=== PATIENT | male | born 1970 | race Caucasian/White ===

== ENCOUNTER 2016-09-25 11:15 | Emergency (ER) | payer OTHER ==
[~2016-09-25] VITALS: Wt 105.5 kg
[2016-09-25] MEDS ORDERED: ONDANSETRON 4 MG INJ IV STA (11:45)
[2016-09-25] MEDS ORDERED: morphine 4 MG/ML VIAL IV STA (11:45)
[2016-09-25] MEDS ORDERED: SOD CHLORIDE 0.9% 1,000 ML IV STA (11:45)
--- NOTE | 2016-09-25 12:07 | ERD ---
ER Documentation Chief Complaint Date/Time DATE: 09/25/16 TIME: 12:02 Chief Complaint bilat flank pain x2days w/ dysuria HPI This is a 46-year-old male who presents to the emergency department today complaining of back pain, abdominal pain and testicular and groin pain that started yesterday. Patient states he had this approximately 3-4 months ago however it resolved and returned again yesterday. States he has had a fever yesterday. States he has pain with urination as well as blood in his urine. Denies any vomiting or diarrhea ROS All systems reviewed and are negative except as per history of present illness. Medications Home Meds Active Scripts Tamsulosin Hcl* (Flomax*) 0.4 Mg Cap.er.24h, 0.4 MG PO BID, #30 CAP Prov:SALENA BATISTA PA-C 09/25/16 Ciprofloxacin Hcl* (Ciprofloxacin Hcl*) 500 Mg Tablet, 500 MG PO BID for 14 Days , TAB Prov:SALENA BATISTA PA-C 09/25/16 Naproxen* (Naprosyn*) 500 Mg Tablet, 500 MG PO BID Y for PAIN AND/OR INFLAMMATION, #30 TAB Prov:SALENA BATISTA PA-C 09/25/16 Hydrocodone/Acetaminophen ([place] 5-325 Tablet) 1 Each Tablet, 1 TAB PO Q6H Y for PAIN, #12 TAB Prov:SALENA BATISTAC 09/25/16 Allergies Allergies: Coded Allergies: No Known Allergy (Unverified , 09/25/16) PMhx/Soc Hx Alcohol Use: No Hx Substance Use: No Hx Tobacco Use: No Physical Exam Vitals Vital Signs Date Time Temp Pulse Resp B/P Pulse Ox O2 Delivery O2 Flow Rate FiO2 09/25/16 11:21 99.2 100 22 122/69 96 Physical Exam Const: No acute distress Head: Atraumatic Eyes: Normal Conjunctiva ENT: Normal External Ears, Nose and Mouth. Neck: Full range of motion..~ No meningismus. Resp: Clear to auscultation bilaterally Cardio: Regular rate and rhythm, no murmurs Abd: Soft, right lower quadrant and left lower quadrant pain non distended. Normal bowel sounds. No specific tenderness McBurney's. No right upper quadrant tenderness uncircumcised penis with no purulent drainage. Right-sided testicular pain. No erythema or warmth. No edema. Skin: No petechiae or rashes Back: Bilateral lumbar spine paraspinal tenderness. No CVA tenderness. No midline tenderness. Pulses 2+. Distal neurovascular Ext: No cyanosis, or edema Neur: Awake and alert Psych: Normal Mood and Affect Result Diagram: 09/25/16 1220 09/25/16 1220 Results 24 hrs Laboratory Tests Test 09/25/16 12:20 09/25/16 14:15 White Blood Count 17.310^3/ul Red Blood Count 5.4310^6/ul Hemoglobin 15.0g/dl Hematocrit 44.8% Mean Corpuscular Volume 82.5fl Mean Corpuscular Hemoglobin 27.6pg Mean Corpuscular Hemoglobin Concent 33.5g/dl Red Cell Distribution Width 13.2% Platelet Count 27465^3/UL Mean Platelet Volume 10.6fl Neutrophils % 82.8% Lymphocytes % 10.5% Monocytes % 5.4% Eosinophils % 0.6% Basophils % 0.3% Nucleated Red Blood Cells % 0.0/100WBC Neutrophils # 14.310^3/ul Lymphocytes # 1.810^3/ul Monocytes # 0.910^3/ul Eosinophils # 0.110^3/ul Basophils # 0.110^3/ul Nucleated Red Blood Cells # 0.010^3/ul Sodium Level 143mmol/L Potassium Level 4.6mmol/L Chloride Level 103mmol/L Carbon Dioxide Level 24mmol/L Anion Gap 21 Blood Urea Nitrogen 16mg/dl Creatinine 0.97mg/dl Glucose Level 110mg/dl Calcium Level 9.5mg/dl Total Bilirubin 0.5mg/dl Direct Bilirubin 0.00mg/dl Indirect Bilirubin 0.5mg/dl Aspartate Amino Transf (AST/SGOT) 24IU/L Alanine Aminotransferase (ALT/SGPT) 42IU/L Alkaline Phosphatase 102IU/L Total Protein 7.8g/dl Albumin 5.1g/dl Globulin 2.70g/dl Albumin/Globulin Ratio 1.88 Lipase 85U/L Urine Color LT. YELLOW Urine Clarity CLOUDY Urine pH 7.0 Urine Specific [place] 1.020 Urine Ketones TRACE Urine Nitrite POSITIVE Urine Bilirubin NEGATIVE Urine Urobilinogen 0.2 E.U./dL Urine Leukocyte Esterase 1+ Urine Microscopic RBC 5-10/HPF Urine Microscopic WBC >50/HPF Urine Squamous Epithelial Cells OCCASIONAL/HPF Urine Bacteria MANY/HPF Urine Hemoglobin 3+ Urine Glucose NEGATIVE% Urine Total Protein 1+ Current Medications Medications (Trade) Dose Ordered Sig/Stephane Route PRN Reason Start Time Stop Time Status Last Admin Dose Admin Sodium Chloride (NS) 1,000 ml @ 1,000 mls/hr Q1H STAT IV 09/25/16 11:45 09/25/16 12:44 DC 09/25/16 12:11 Morphine Sulfate (morphine) 4 mg ONCE STAT IV 09/25/16 11:45 09/25/16 11:48 DC 09/25/16 12:12 Ondansetron HCl 4 mg 4 mg ONCE STAT IV 09/25/16 11:45 09/25/16 11:48 DC 09/25/16 12:11 Ceftriaxone Sodium (Rocephin) 50 ml @ 100 mls/hr ONCE ONCE IVPB 09/25/16 15:00 09/25/16 15:29 DC 09/25/16 14:57 DIAGNOSTIC IMAGING REPORT Patient: DEBORAH ESPINO : 1970 Age: 46 Sex: M MR #: [id number] DOS: 09/25/16 0000 Ordering MD: SALENA BATISTA PA-C Location: E Room/Bed: PROCEDURE: US Scrotum. CLINICAL INDICATION: Right scrotal pain. TECHNIQUE: Multiple sonographic images of the scrotal region were obtained utilizing a linear array transducer with grayscale and color-flow and pulsed Doppler imaging. The images were reviewed on a high-resolution PACS workstation. COMPARISON: No prior studies are available for comparison. FINDINGS: The right testis measures 4.2 x 2.9 x 3.2 cm. The left testis measures 3.7 x 2.5 x 0.9 cm. There is no intratesticular mass. There is a benign left epididymal cyst measuring 0.3 x 0.2 x 0.2 cm. The epididymi are otherwise normal There is normal flow to both testes demonstrated with color Doppler and pulsed Doppler sonography. There is no hydrocele. There is no varicocele. The scrotal wall is unremarkable. IMPRESSION: 1. Small benign left epididymal cyst. 2. Otherwise normal scrotal ultrasound. RPTAT: QQ .Adrien Frausto MD, MD Date Time Electronically viewed and signed by .Adrien Frausto MD, MD on 09/25/2016 14:43 .R/ CC: SALENA BATISTA PA-C DIAGNOSTIC IMAGING REPORT Patient: DEBORAH ESPINO : 1970 Age: 46 Sex: M MR #: [id number] DOS: 09/25/16 1145 Ordering MD: SALENA BATISTA PA-C Location: [facility] Room/Bed: PROCEDURE: CT Abdomen and pelvis without contrast. CLINICAL INDICATION: Bilateral flank pain. TECHNIQUE: CT scan of the abdomen and pelvis without contrast was performed on a multidetector high-resolution CT scan. . Coronal and sagittal reformatted images were obtained from the axial source images. Standard CT scan of the abdomen pelvis without contrast protocols were performed. The total exam CTDI equals 22.1 mGy and the total exam DLP equals 1492.99 mGy- cm. One or more of the following dose reduction techniques were used: - Automated exposure control. - Adjustment of the mA and/or kV according to patient size. Use of iterative reconstruction technique. COMPARISON: None. FINDINGS: The kidneys are normal in size without hydronephrosis or intra renal masses bilaterally. There is a tiny approximately 1-2 mm non-obstructing inferior left renal calcified calculus. The ureters and urinary bladder are unremarkable. The appendix is unremarkable. There is a tiny hiatal hernia with the stomach otherwise unremarkable. The small large bowel are unremarkable. Negative for intra-abdominal free air, free fluid, abscesses or lymphadenopathy. The liver spleen pancreas adrenal glands and gallbladder are unremarkable. No evidence biliary ductal dilation. The abdominal aorta is unremarkable. There is a small left inguinal fat- containing hernia without herniated bowel or strangulation. There is bilateral dependent lung atelectasis with the lung bases otherwise unremarkable. There is degenerative changes lower thoracic and lumbar spine but no acute osseous findings or osteoblastic/osteolytic lesions. IMPRESSION: 1. Tiny approximately 1-2 mm non-obstructing inferior left renal calcified calculus. No other urinary calcified calculi or obstructive uropathy. 2. Small left inguinal fat-containing hernia without herniated bowel or strangulation. 3. Negative for intra-abdominal free air fluid abscesses or lymphadenopathy. 4. Unremarkable appendix. RPTAT:AAJJ Physician Charlette Date Time Electronically viewed and signed by Krysta Weston Physician on 09/25/2016 15:07 BM/ CC: SALENA BATISTA PA-C Procedures/[facility] This a 46-year-old male who presents the emergency department today for bilateral low back pain, abdominal pain and right testicular pain with dysuria and reports of hematuria. Patient was complaining of considerable amount of pain did have bilateral lower abdominal and back pain on physical exam. I did obtain laboratory work as well as imaging Laboratory workup shows an elevated white blood cell count of 17.3. He is not anemic. Platelets are within normal limits. Electrolytes are within normal limits. Glucose within normal limits. Liver enzymes are within normal limits. Lipase within normal limits. UA shows 1+ leukocyte esterase, positive nitrites and 3+ hemoglobin CT abdomen and pelvis noncontrast shows tiny approximately 1-2 mm nonobstructing inferior left renal calcified calculus. There are no other urinary calcified calculi or obstructive uropathy. There is a small left inguinal fat-containing hernia without herniated bowel or strangulation. There is no free air, abscess or lymphadenopathy. There are degenerative changes in the lower thoracic and lumbar spine. Unremarkable appendix. Gallbladder is unremarkable. There is no evidence of biliary ductal dilatation. Testicular ultrasound shows a small benign left epididymal cyst. Otherwise normal scrotal ultrasound. There is normal flow to both testes. There is no intra-or testicular mass. There is no hydrocele or varicocele Patient symptoms at this time is consistent with urinary tract infection with hematuria possible early pyelonephritis given patient's elevated white blood cell count. Signs and symptoms also consistent with kidney stones and hernia. I have explained all results to the patient. Patient was given IV fluids, morphine and Zofran here in the emergency department in addition to Rocephin and Toradol. Patient will given a prescription for [place], Naprosyn, Flomax Cipro for home. Patient was instructed to follow-up with his primary care doctor for referral to general surgery and urology specialist. At this time the patient is stable for discharge and outpatient management. Patient should follow up with their PCP in the next 1-2 days. They may return to the emergency department sooner for any persistent or worsening of symptoms. Patient understood and agreed with the plan. Dr. Foley and Dr. Grant were both involved in the conversation and they are in agreement with the plan Departure Diagnosis: Primary Impression: Kidney stones Additional Impression: UTI (urinary tract infection) Urinary tract infection type: site unspecified Hematuria presence: with hematuria Qualified Code: N39.0 - Urinary tract infection with hematuria, site unspecified Condition: Fair SALENA BATISTA PA-C Sep 25, 2016 12:07
[2016-09-25 12:31] LABS: ADD SCAN DIFF NO
[2016-09-25 12:34] LABS: BASOPHIL # 0.1 10^3/ul (0.0-0.1); BASOPHILS % 0.3 % (0.0-2.0); EOSINOPHILS # 0.1 10^3/ul (0.0-0.5); EOSINOPHILS % 0.6 % (0.0-7.0); HEMATOCRIT 44.8 % (42.0-52.0); LYMPHOCYTES # 1.8 10^3/ul (0.8-2.9); LYMPHOCYTES % 10.5 % (15.0-51.0); MEAN CORPUSCULAR HEMOGLOBIN 27.6 pg (29.0-33.0); MEAN CORPUSCULAR HGB CONC 33.5 g/dl (32.0-37.0); MEAN CORPUSCULAR VOLUME 82.5 fl (82.0-101.0); MEAN PLATELET VOLUME 10.6 fl (7.4-10.4); MONOCYTE # 0.9 10^3/ul (0.3-0.9); MONOCYTES % 5.4 % (0.0-11.0); NEUTROPHIL # 14.3 10^3/ul (1.6-7.5); NEUTROPHILS % 82.8 % (39.0-77.0); PLATELET COUNT 223 10^3/UL (140-415); RED BLOOD COUNT 5.43 10^6/ul (4.70-6.10); RED CELL DISTRIBUTION WIDTH 13.2 % (11.5-14.5); WHITE BLOOD COUNT 17.3 10^3/ul (4.8-10.8)
[2016-09-25 12:55] LABS: ALBUMIN 5.1 g/dl (3.3-4.9); ALBUMIN/GLOBULIN RATIO 1.88; BILIRUBIN,INDIRECT 0.5 mg/dl (0-1.1); BILIRUBIN,TOTAL 0.5 mg/dl (0.2-1.3); CALCIUM 9.5 mg/dl (8.4-10.2); CREATININE 0.97 mg/dl (0.61-1.24); POTASSIUM 4.6 mmol/L (3.5-5.1); TOTAL PROTEIN 7.8 g/dl (6.1-8.1)
[2016-09-25 14:27] LABS: ADD UMIC YES; UR BILIRUBIN (Dip) NEGATIVE (NEGATIVE); UR BLOOD (Dip) 3+ (NEGATIVE); UR CLARITY CLOUDY (CLEAR); UR COLOR LT. YELLOW (YELLOW); UR GLUCOSE (Dip) NEGATIVE (NEGATIVE); UR KETONES (Dip) TRACE (NEGATIVE); UR LEUKOCYTE ESTERASE (Dip) 1+ (NEGATIVE); UR NITRITE (Dip) POSITIVE (NEGATIVE); UR TOTAL PROTEIN (Dip) 1+ (NEGATIVE); UR UROBILINOGEN (Dip) 0.2 E.U./dL (0.1-1.0)
[2016-09-25 14:42] LABS: UR BACTERIA MANY /HPF (NONE SEEN); UR SQUAMOUS EPITHELIAL CELL OCCASIONAL /HPF (FEW)
--- NOTE | 2016-09-25 14:43 | RADRPT ---
PROCEDURE: US Scrotum. CLINICAL INDICATION: Right scrotal pain. TECHNIQUE: Multiple sonographic images of the scrotal region were obtained utilizing a linear arra y transducer with grayscale and color-flow and pulsed Doppler imaging. The images were reviewed on a high-resolution PACS workstation. COMPARISON: No prior studies are available for comparison. FINDINGS: The right testis measures 4.2 x 2.9 x 3.2 cm. The left testis measures 3.7 x 2.5 x 0.9 cm. There is no intratesticular mass. There is a benign left epididymal cyst measuring 0.3 x 0.2 x 0.2 cm. The epididymi are otherwise no rmal There is normal flow to both testes demonstrated with color Doppler and pulsed Doppler sonography. There is no hydrocele. There is no varicocele. The scrotal wall is unremarkable. IMPRESSION: 1. Small benign left epididymal cyst. 2. Otherwise normal scrotal ultrasound. RPTAT: QQ .Adrien Frausto MD, MD Date Time Electronically viewed and signed by .Adrien Frausto MD, on 09/25/2016 14:43 .R/
[2016-09-25] MEDS ORDERED: CEFTRIAXONE 1 GM/50 ML (PMX) 50 ML IVPB ONE (15:00)
--- NOTE | 2016-09-25 15:08 | RADRPT ---
PROCEDURE: CT Abdomen and pelvis without contrast. CLINICAL INDICATION: Bilateral flank pain. TECHNIQUE: CT scan of the abdomen and pelvis without contrast was performed on a multidetector hig h-resolution CT scan. . Coronal and sagittal reformatted images were obtained from the axial [facility] e images. Standard CT scan of the abdomen pelvis without contrast protocols were performed. The total exam CTDI equals 22.1 mGy and the total exam DLP equals 1492.99 mGy-cm. One or more of the following dose reduction techniques were used: - Automated exposure control. - Adjustment of the mA and/or kV according to patient size. Use of iterative reconstruction technique. COMPARISON: None. FINDINGS: The kidneys are normal in size without hydronephrosis or intra renal masses bilaterally. There is a tiny approximately 1-2 mm non-obstructing inferior left renal calcified calculus. The ureters and urinary bladder are unremarkable. The appendix is unremarkable. There is a tiny hiatal hernia with the stomach otherwise unremarkable . The small large bowel are unremarkable. Negative for intra-abdominal free air, free fluid, abscesses or lymphadenopathy. The liver spleen pancreas adrenal glands and gallbladder are unremarkable. No evidence biliary duct al dilation. The abdominal aorta is unremarkable. There is a small left inguinal fat-containing hernia without h erniated bowel or strangulation. There is bilateral dependent lung atelectasis with the lung bases otherwise unremarkable. There is degenerative changes lower thoracic and lumbar spine but no acute osseous findings or osteoblastic/o steolytic lesions. IMPRESSION: 1. Tiny approximately 1-2 mm non-obstructing inferior left renal calcified calculus. No other urin maia calcified calculi or obstructive uropathy. 2. Small left inguinal fat-containing hernia without herniated bowel or strangulation. 3. Negative for intra-abdominal free air fluid abscesses or lymphadenopathy. 4. Unremarkable appendix. RPTAT:AAJJ Physician Charlette Date Time Electronically viewed and signed by Physician Charlette on 09/25/2016 15:07 BM/
[2016-09-25] MEDS ORDERED: HYDR-906 PO (15:35)
[2016-09-25] MEDS ORDERED: TAMS-14 PO (15:36)
[2016-09-25] MEDS ORDERED: CIPR500T4 PO (15:36)
[2016-09-25] MEDS ORDERED: NAPR-260 PO (15:36)
[2016-09-25] MEDS ORDERED: KETOROLAC 30 MG INJ IV STA (15:44)
[2016-09-25 16:10] VITALS: BP 124/70; PULSE 89; RESP 22; TEMP 99
== END 2016-09-25 16:10 | disposition home or self-care (01) ==
LOC: FTE 11:15
DX: N20.0 Calculus of kidney (principal); N39.0 Urinary tract infection, site not specified
CPT/HCPCS: 74176; 76870; 80053; 81001; 83690; 85025; 87086; J0696; J1885; J2270; J2405; J7030; 36415; 96361; 96365; 96375

== ENCOUNTER 2018-12-08 11:22 | Emergency (ER) | payer BC ==
[~2018-12-08] VITALS: Ht 160 cm; Wt 107.5 kg
[~2018-12-08 11:22] MED LIST: CIPR500T4 PO; HYDR-4011 PO; NAPR-985 PO; TAMS-14 PO
[2018-12-08 11:25] VITALS: Ht 160 cm; Wt 107.5 kg
[2018-12-08] MEDS ORDERED: KETOROLAC 30 MG INJ IM STA (12:33)
[2018-12-08] MEDS ORDERED: CEFTRIAXONE 1 GM INJ IM ONE (13:30)
[2018-12-08 14:12] VITALS: BP 132/78; PULSE 87; RESP 18
== END 2018-12-08 14:12 | disposition home or self-care (01) ==
LOC: E/R 11:22
DX: N20.0 Calculus of kidney (principal)
CPT/HCPCS: 81001; J0696; J1885; 96372